=== PATIENT | female | born 1960 | race Caucasian/White ===

== ENCOUNTER 2017-03-02 18:01 | Inpatient (IN) ==
[2017-03-02 18:47] LABS: BASO% 0.3 % (0.0-0.8); EOS# 0.13 X1000 (0.0-0.7); EOS% 0.8 % (0.0-10.0); HEMATOCRIT 35.8 % (37.0-47.0); HEMOGLOBIN 12.4 g/dL (12.0-16.0); IMM GRAN% 1.7 % (0.0-0.5); LYMPH# 0.94 X1000 (1.2-3.4); LYMPH% 5.4 % (20.5-51.1); MANUAL DIFF NEEDED? NO; MCH 26.3 PG (27-31); MCHC 34.6 g/dL (33-37); MONO# 1.94 X1000 (0.11-0.59); MONO% 11.2 % (1.7-9.3); MPV 10.7 FL (7.4-10.4); NEUT% 80.6 % (42.2-75.2); PLT 438 X1000 (130-400); RBC 4.71 XMIL (4.2-5.4)
[2017-03-02 19:11] LABS: URINE SOURCE CLEAN CATCH
[2017-03-02 19:18] LABS: BILIRUBIN URINE NEGATIVE (NEGATIVE); BLOOD URINE SMALL (NEGATIVE); COLOR YELLOW; GLUCOSE URINE NEGATIVE (NEGATIVE); LEUKOCYTES URINE LARGE (NEGATIVE); NITRITE URINE NEGATIVE (NEGATIVE); PROTEIN URINE 100 mg/dL (NEGATIVE); SP GRAVITY URINE 1.008; TURBIDITY URINE HAZY (CLEAR); URINE MICRO REVIEW NEEDED? YES; UROBILINOGEN URINE NORMAL (NORMAL)
[2017-03-02 19:20] LABS: UR EPITHELIAL CELLS <10 /HPF (<10); URINE BACTERIA NEGATIVE /HPF; URINE CULTURE NEEDED? YES; URINE RBC <10 /HPF (<10); URINE WBC TNTC /HPF (<10)
[2017-03-02 19:23] LABS: ALBUMIN 2.8 g/dL (3.5-5.0); CALCIUM 8.9 mg/dL (8.8-10.2); POTASSIUM 3.1 mmol/L (3.5-5.1); TOTAL BILIRUBIN 1.29 mg/dL (0.20-1.00); TOTAL PROTEIN 7.8 g/dL (6.3-8.3)
[2017-03-02] MEDS ORDERED: MORPHINE IV ONE (19:52)
[2017-03-02] MEDS ORDERED: ZOFRAN IV ONE (19:52)
[2017-03-02] MEDS ORDERED: NS 1,000 ML IV ONE (19:52)
--- NOTE | 2017-03-02 20:33 | PROVIDER DOCUMENTATION ---
This chart was entered by Maria C Verde Scribe, acting as scribe for Sheng Colon MD. HPI-General Adult - General Chief Complaint: General Adult Stated Complaint: KIDNEY PAIN Time Seen by Provider: 03/02/17 19:36 Source: patient Allergies/Adverse Reactions: Patient Allergies Allergy/AdvReac Type Severity Reaction Status Date / Time Penicillins Allergy Unknown Verified 03/02/17 20:14 Home Medications: Home Medication List Medication Instructions Recorded Confirmed Last Taken Type NK [No Home Medications] 03/02/17 03/02/17 Unknown History - History of Present Illness -Gen Adult Nature of Presenting Problems: 56 year old F presents to the ED with a cc of syncope. Pt states that 4 days ago she lost her appetite. PT states that 2 days ago she began developing nausea , vomiting, diarrhea, lower back pain, and painful urination. Pt states that she has been taking AZO and has since had relief of nausea, vomiting, diarrhea, and painful urination. Pt states today she was very weak and had a few episodes of syncope. Location of Pain/Injury: reports: back Pain Radiation: reports: no radiation Quality of Pain: reports: aching Severity: reports: mild Onset/Duration: reports: 4 days ago Timing: reports: improving Context/Activities at Onset: reports: none Associated Symptoms: reports: diarrhea, genitourinary problems, loss of appetite , nausea, syncope, vomiting, weakness Similar Symptoms Previously?: No Recently seen or treated by another doctor?: No Review of Systems - Adult - REVIEW OF SYSTEMS - ADULT Constitutional: reports: chills, fever Eyes: reports: no symptoms reported Ears, Nose, Mouth & Throat: reports: no symptoms reported Cardiovascular: reports: no symptoms reported Respiratory: denies: cough, shortness of breath Gastrointestinal: reports: diarrhea, nausea, vomiting Genitourinary: reports: dysuria. denies: hematuria Musculoskeletal: reports: back pain. denies: muscle weakness Integumentary: reports: no symptoms reported Neurological: reports: no symptoms reported Psychiatric: reports: no symptoms reported Endocrine: reports: no symptoms reported Hematologic/Lymphatic: reports: no symptoms reported Allergic/Immunologic: reports: no symptoms reported All Other Systems: Reviewed and Negative Past History - Adult - PAST MEDICAL HISTORY-ADULT Review of Records: reports: Nursing Assessment Review, Medications Reviewed Major Childhood Illnesses: reports: denies history - PRIOR SURGERIES/PROCEDURES Surgical/Procedure History: reports: none - IMMUNIZATION STATUS Childhood Immunizations: See Nurse Assessment Flu Vaccine: See Nurse Assessment - SOCIAL HISTORY Smoking: quit greater than 1 year Substance Use: none/never Alcohol Use Frequency: never Physical Exam-General - PHYSICAL EXAM-ADULT Initial Vital Signs Reviewed: Yes - CONSTITUTIONAL General Appearance: appears well, alert, no apparent distress - RESPIRATORY Respiratory: chest non-tender, lungs clear, normal breath sounds - CARDIOVASCULAR Cardiovascular: normal peripheral pulses, regular rate, rhythm, no edema - GASTROINTESTINAL (ABDOMEN) Abdominal Exam: normal bowel sounds, non tender, soft - MUSCULOSKELETAL Back Exam: CVA tenderness (severely tender bilateral CVA) - SKIN Integumentary: normal color, normal turgor, warm/dry - PSYCHIATRIC Psych/Mental Status: normal mood/affect, normal thought content, normal thought process, oriented x 3 Progress - PLAN OF CARE/RESULTS Progress/Plan/Lab Results: Vital Signs - 8 hr 03/02/17 18:09 Temperature 99.2 F Pulse Rate 77 Respiratory Rate 18 Blood Pressure 122/55 O2 Sat by Pulse Oximetry 97 Laboratory Results - last 24 hr 03/02/17 03/02/17 03/02/17 18:30 18:30 19:00 WBC 17.30 H RBC 4.71 Hgb 12.4 Hct 35.8 L MCV 76.0 L MCH 26.3 L MCHC 34.6 RDW Std Deviation 15.5 H Plt Count 438 H MPV 10.7 H Immature Gran % (Auto) 1.7 H Neut % (Auto) 80.6 H Lymph % (Auto) 5.4 L [place] % (Auto) 11.2 H Eos % (Auto) 0.8 Baso % (Auto) 0.3 Immature Gran # (Auto) 0.30 H Neut # (Auto) 13.94 H Lymph # (Auto) 0.94 L [place] # (Auto) 1.94 H Eos # (Auto) 0.13 Baso # (Auto) 0.05 Sodium 131 L Potassium 3.1 L Chloride 92 L Carbon Dioxide 16 L Anion Gap 23 BUN 58 H Creatinine 2.3 H Estimated GFR/1.73 m2 22 BUN/Creatinine Ratio 25 Glucose 123 H Calculated Osmolality 280 Calcium 8.9 Total Bilirubin 1.29 H AST 158 H ALT 129 H Alkaline Phosphatase 175 H Total Protein 7.8 Albumin 2.8 L Globulin 5.0 Albumin/Globulin Ratio 0.6 Urine Source CLEAN CATCH Urine Color YELLOW Urine Turbidity HAZY Urine pH 6.0 Ur Specific [place] 1.008 Urine Protein 100 A Ur Glucose (Stick) NEGATIVE Ur Ketones (Stick) NEGATIVE Urine Blood SMALL A Urine Nitrite NEGATIVE Urine Bilirubin NEGATIVE Urobilinogen Dipstick NORMAL Urine Leukocytes LARGE A Urine WBC (Auto) TNTC A Urine RBC (Auto) <10 U Epithel Cells (Auto) <10 Urine Bacteria (Auto) NEGATIVE Urine Crystals Not Reportable Small Round Cells Not Reportable Urine Casts Not Reportable Urine Yeast-like Cells NONE SEEN Orders Category Date Time Status BLOOD CULTURE [BLDCUL] Stat Lab 03/02/17 19:51 Uncollected CBC WITH ELECTRONIC DIFF [HEME] Stat Lab 03/02/17 18:30 Completed COMPREHENSIVE METABOLIC PANEL [CHEM] Stat Lab 03/02/17 18:30 Completed UA Reflex [URINALYSIS W/POSS RFLX CULT-1] [URINALYSIS] Lab 03/02/17 19:00 Completed Stat URINE CULTURE [RM] Routine Lab 03/02/17 19:30 Received URINE MANUAL MICROSCOPIC [URINALYSIS] Stat Lab 03/02/17 19:00 Completed Result Diagrams: 03/02/17 18:30 03/02/17 18:30 - CONSULTS/PCP/HOSPITALIST Notification #1 *Consult/PCP/Hospitalist*: Dr. Rose(Hospitalist) Time Discussed: 20:30 Consult Disposition: Admit Departure - Departure Time of Disposition Decision: 20:31 DIAGNOSIS: Pyelonephritis, TIKA (acute kidney injury) Disposition: ADMITTED INPATIENT 09 Certified Medical Emergency: Emergent Condition: Fair Referrals and Follow-Ups: None,PCP [Primary Care Provider] - - Critical Care Note This patient required my direct & personal management of CC.: No This chart was documented by the indicated scribe, (Maria C Verde Scribe) and accurately reflects the services I performed and decisions made by me, Sheng Colon MD, as attested by the provider's signature.
[2017-03-02] MEDS ORDERED: ZOFRAN IV PRN (22:45)
[2017-03-02] MEDS ORDERED: KLOR-CON PO ONE (22:45)
[2017-03-02] MEDS: NS 1,000 ML IV SCH (23:14)
[2017-03-02] MEDS: LEVAQUIN 500 MG/D5W 500 MG/100 ML IVPB IV SCH (23:14)
[2017-03-03] MEDS: NS 1,000 ML IV SCH ×3 (06:29→20:49)
[2017-03-03 07:16] LABS: BASO% 0.1 % (0.0-0.8); EOS# 0.06 X1000 (0.0-0.7); EOS% 0.4 % (0.0-10.0); HEMATOCRIT 29.2 % (37.0-47.0); HEMOGLOBIN 10.1 g/dL (12.0-16.0); IMM GRAN# 0.14 X1000 (0.0-0.04); LYMPH# 0.99 X1000 (1.2-3.4); LYMPH% 7.3 % (20.5-51.1); MANUAL DIFF NEEDED? YES; MCH 26.4 PG (27-31); MCHC 34.6 g/dL (33-37); MCV 76.4 FL (81-99); MONO# 1.44 X1000 (0.11-0.59); MONO% 10.7 % (1.7-9.3); MPV 10.1 FL (7.4-10.4); NEUT% 80.5 % (42.2-75.2); PLT 436 X1000 (130-400); RBC 3.82 XMIL (4.2-5.4)
[2017-03-03 07:38] LABS: LYMPHS 9 % (21-51); MONO 4 % (1-9)
[2017-03-03 07:45] LABS: CALCIUM 8.1 mg/dL (8.8-10.2); POTASSIUM 2.7 mmol/L (3.5-5.1)
--- NOTE | 2017-03-03 07:48 | Diag Imaging Result Doc PS360 ---
EXAM: ABDOMEN/PELVIS W/O CONTRAST HISTORY: severe pyelo TECHNIQUE: CT urogram without contrast COMMENT: The spleen is enlarged measuring over 16 cm in AP dimension. There is mild left-sided hydronephrosis with perinephric stranding. There is cortical scarring throughout the right kidney. There are no apparent stones. The urinary bladder is unremarkable in appearance. There is no evidence of appendicitis or bowel obstruction. The gallbladder is not distended and there are no apparent gallstones. There is degenerative disc disease throughout the lumbar spine. IMPRESSION: Splenomegaly. No evidence of urolithiasis. The possibility of a recently passed stone or other ureteral obstruction on the left cannot be excluded. The possibility of left-sided pyelonephritis cannot be excluded. Cortical changes in the right kidney suggesting previous pyelonephritis. Electronically signed by Rudi Vick 03/03/2017 7:46 AM
--- NOTE | 2017-03-03 08:22 | HISTORY AND PHYSICAL ---
CHIEF COMPLAINT: Left flank pain, nausea, vomiting times 2-3 days. HISTORY OF PRESENTING ILLNESS: This is a 55-year-old female who states that she does not have any significant past medical history and presented to the emergency department with 3 days history of having left flank pain. She states that she was having some nausea and vomiting, and the pain seemed to be worsening. Subsequently she had come to the emergency department. In the ER she was evaluated. She had imaging done which did show stranding in the left kidney consistent with pyelonephritis and due to her presenting symptoms it was thought that she would need hospitalization and further management. At the time of my examination she had denied any headaches, chest pain, shortness of breath, hemoptysis, melena, weight changes, but complained of nausea, vomiting and having some fevers and chills. PAST MEDICAL HISTORY: None. PAST SURGICAL HISTORY: None. ALLERGIES: Penicillin. CURRENT MEDICATIONS: None. SOCIAL HISTORY: She denies any history of smoking, alcohol or illicit drug use. FAMILY HISTORY: Positive for coronary disease in mother. REVIEW OF SYSTEMS: Twelve point review of systems is as in HPI. Other systems negative. PHYSICAL EXAMINATION: GENERAL: Cooperative, friendly female. She is resting more comfortably now. VITAL SIGNS: Temp is 99.2, pulse 77, respiration 18, blood pressure 122/55, she is saturating 97%. HEENT: Atraumatic, normocephalic. Extraocular movements intact. PERRLA. NECK: Supple. CHEST: Clear to auscultation. CARDIOVASCULAR: Regular rate and rhythm. ABDOMEN: Soft, left flank tenderness. EXTREMITIES: Trace edema. NEUROLOGIC: She is awake, alert, oriented x3. GENITOURINARY: No bladder distention. SKIN: Warm. LABORATORIES AND STUDIES: Sodium 131, potassium 3.1, chloride 92, CO2 16, BUN is 58, creatinine is 2.3, glucose is 123, AST 158, ALT 129, alkaline phosphatase 175. ASSESSMENT: A 56-year-old female who presented to our emergency department with a 3 day history of having abdominal pain mostly in the left flank region, nausea and vomiting. She was evaluated in the ER and was found to have stranding on imaging consistent with pyelonephritis. She will need hospitalization for further management. 1. Acute left pyelonephritis. 2. Abnormal liver function tests. 3. Mild hypokalemia. 4. Acute kidney injury. PLAN: 1. We will admit patient to medical floor with telemetry. 2. We will start patient on IV antibiotics, give her adequate pain control and antiemetics. 3. Continue with IV fluids. 4. We will check abdominal ultrasound of the right upper quadrant and also check a hepatitis profile. 5. We will replace her potassium. 6. Monitor renal function. 7. We will put patient on DVT prophylaxis with SCDs. 8. We will continue to follow and reassess. cc: Neto Rose MD
--- NOTE | 2017-03-03 08:42 | Diag Imaging Result Doc PS360 ---
EXAM: US ABDOMEN-COMPLETE HISTORY: abdominal pain TECHNIQUE: COMPARISON: CT from 03/02/2017 FINDINGS: Normal proximal aorta. The distal aorta is obscured. Normal inferior vena cava. Normal pancreatic head and body.. The pancreatic tail is obscured. No focal hepatic abnormality. There is scarring to the right kidney. No hydronephrosis. The gallbladder is partly contracted. The common bile duct measures 3 mm. Spleen is mildly enlarged measuring 14.3 cm in length. No ascites. Normal left kidney. No hydronephrosis. IMPRESSION: 1.Mild splenomegaly 2.Scarring to the right kidney 3.Partially contracted gallbladder Electronically signed by Jayson Emanuel 03/03/2017 8:39 AM
[2017-03-03] MEDS: MERREM 500 MG in NS 50 ML IV SCH ×2 (09:31→16:14)
[2017-03-03 10:08] LABS: ALBUMIN 2.8 g/dL (3.5-5.0); DIRECT BILIRUBIN 0.8 mg/dL (0.00-0.20); TOTAL BILIRUBIN 1.24 mg/dL (0.20-1.00); TOTAL PROTEIN 5.9 g/dL (6.3-8.3)
[2017-03-03] MEDS: POTASSIUM CHLORIDE 20 MEQ/SWI 20 MEQ/100 ML IVPB IV SCH ×2 (10:09→12:24)
--- NOTE | 2017-03-03 13:48 | PROGRESS NOTE ---
DATE: 03/03/2017 SUBJECTIVE: The patient is resting comfortably in bed. She states that she feels a lot better today. She denies any nausea, vomiting or abdominal pain. OBJECTIVE: Vital Signs: Temperature 98 degrees, blood pressure 124/57, heart rate 69, respirations 17, O2 saturations 95% on room air. General: This is an elderly, morbidly obese female, lying in bed in no acute distress. Head: Normocephalic, atraumatic. Heart: S1, S2. Normal. Regular rate and rhythm. Lungs: Clear to auscultation bilaterally. No crackles. No rales. Abdomen: Positive bowel sounds. Soft, nontender, nondistended. Extremities: No edema. No cyanosis. No calf tenderness. Neurologic: The patient is alert and oriented x3. LABS: White blood cell count 13, hemoglobin 10,hematocrit 29, platelets 436. Sodium 135, potassium 2.7, chloride 98, CO2 21, BUN 51, creatinine 1.9, glucose 102. Total bilirubin 1.24, AST 113, ALT 110, alkaline phosphatase 145, albumin 2.8. ASSESSMENT AND PLAN: 1. Acute left pyelonephritis. The urine culture is growing gram-negative rods. We will continue on intravenous antibiotic therapy and follow up on the culture results. 2. Elevated liver function tests. This appears to slowly be improving. The abdominal ultrasound is unremarkable. We will await the results of the hepatitis profile. 3. Acute kidney injury on chronic kidney disease. Improving. Continue on intravenous fluid hydration. 4. Morbid obesity. Aware. 5. Deep vein thrombosis prophylaxis. Will start the patient on Lovenox. 6. Will consult physical therapy. cc: Argentina Armstrong MD
[2017-03-03] MEDS: NORCO-5 PO PRN ×2 (14:02→20:41)
[2017-03-03] MEDS: LOVENOX SUBQ SCH (14:02)
[2017-03-03] MEDS: DESYREL PO PRN (20:45)
[2017-03-03] MEDS: LEVAQUIN 500 MG/D5W 500 MG/100 ML IVPB IV SCH (21:55)
[2017-03-04] MEDS: MERREM 500 MG in NS 50 ML IV SCH ×3 (00:50→16:39)
[2017-03-04] MEDS: NORCO-5 PO PRN ×3 (00:51→21:33)
[2017-03-04 06:24] LABS: MANUAL DIFF NEEDED? NO
[2017-03-04] MEDS: PRILOSEC PO SCH (06:29)
[2017-03-04 06:37] LABS: BASO% 0.2 % (0.0-0.8); EOS# 0.21 X1000 (0.0-0.7); EOS% 1.6 % (0.0-10.0); HEMATOCRIT 27.9 % (37.0-47.0); HEMOGLOBIN 9.5 g/dL (12.0-16.0); IMM GRAN# 0.23 X1000 (0.0-0.04); IMM GRAN% 1.8 % (0.0-0.5); LYMPH# 1.03 X1000 (1.2-3.4); LYMPH% 7.9 % (20.5-51.1); MCH 26.5 PG (27-31); MCHC 34.1 g/dL (33-37); MCV 77.9 FL (81-99); MONO# 1.17 X1000 (0.11-0.59); MONO% 8.9 % (1.7-9.3); MPV 9.6 FL (7.4-10.4); NEUT% 79.6 % (42.2-75.2); PLT 560 X1000 (130-400); RBC 3.58 XMIL (4.2-5.4)
[2017-03-04 06:49] LABS: ALBUMIN 2.8 g/dL (3.5-5.0); CALCIUM 7.9 mg/dL (8.8-10.2); POTASSIUM 2.9 mmol/L (3.5-5.1); TOTAL BILIRUBIN 0.87 mg/dL (0.20-1.00); TOTAL PROTEIN 6.7 g/dL (6.3-8.3)
[2017-03-04] MEDS ORDERED: KLOR-CON PO ONE (09:09)
[2017-03-04] MEDS: NEUTRA-PHOS PO SCH ×3 (09:39→22:00)
[2017-03-04] MEDS: MIRALAX PO SCH ×2 (09:39→21:36)
[2017-03-04 11:09] LABS: HEPATITIS PROFILE ACUTE SEE COMMENTS
[2017-03-04] MEDS ORDERED: NS 1,000 ML ONE (11:34)
--- NOTE | 2017-03-04 12:33 | PROGRESS NOTE ---
DATE: 03/04/2017 SUBJECTIVE: The patient is sitting up on the edge of the bed. She states that she feels a lot better today. OBJECTIVE: Vital signs: Temperature 97, blood pressure 101/50, heart rate 59, respirations 19, O2 sat is 99% on room air. General: This is an elderly female lying in bed in no acute distress. HEENT: Head normocephalic, atraumatic. Heart: S1, S2 normal. Regular rate and rhythm. Lungs: Clear to auscultation bilaterally with no wheezing, no rales, no rhonchi. Abdomen: Positive bowel sounds, soft, nontender, nondistended. Extremities: No edema, no cyanosis, no calf tenderness. Neurological: The patient is alert and oriented x3. LABS: White blood cell count 13, hemoglobin 9.5, hematocrit 27, platelets 560. Sodium 139, potassium 2.9, chloride 102, CO2 of 20, BUN 39, creatinine 1.5, glucose 109. AST 66, ALT 87, alkaline phosphatase 140. Urine culture: E. coli. ASSESSMENT AND PLAN: 1. Acute left pyelonephritis secondary to E. coli. Continue on the current IV antibiotic region. 2. Elevated liver function tests, improved. 3. Acute kidney injury on chronic kidney disease. Slowly improving. 4. Morbid obesity. Aware. 5. DVT prophylaxis. Continue on Lovenox. 6. Continue with physical therapy. cc: Argentina Armstrong MD
[2017-03-04] MEDS: LOVENOX SUBQ SCH (14:39)
[2017-03-04] MEDS: DESYREL PO PRN (21:33)
[2017-03-04] MEDS: LEVAQUIN 500 MG/D5W 500 MG/100 ML IVPB IV SCH (22:39)
[2017-03-05] MEDS: MERREM 500 MG in NS 50 ML IV SCH ×3 (01:25→16:45)
[2017-03-05] MEDS: NORCO-5 PO PRN ×5 (02:28→22:40)
[2017-03-05] MEDS: PRILOSEC PO SCH (06:42)
[2017-03-05 07:33] LABS: MANUAL DIFF NEEDED? NO
[2017-03-05 07:43] LABS: BASO% 0.3 % (0.0-0.8); EOS# 0.29 X1000 (0.0-0.7); EOS% 2.5 % (0.0-10.0); HEMATOCRIT 29.6 % (37.0-47.0); HEMOGLOBIN 9.9 g/dL (12.0-16.0); IMM GRAN# 0.33 X1000 (0.0-0.04); IMM GRAN% 2.8 % (0.0-0.5); LYMPH# 1.55 X1000 (1.2-3.4); LYMPH% 13.2 % (20.5-51.1); MCH 26.3 PG (27-31); MCHC 33.4 g/dL (33-37); MCV 78.7 FL (81-99); MONO# 0.82 X1000 (0.11-0.59); MPV 9.1 FL (7.4-10.4); NEUT% 74.2 % (42.2-75.2); PLT 667 X1000 (130-400); RBC 3.76 XMIL (4.2-5.4)
[2017-03-05 08:22] LABS: ALBUMIN 2.9 g/dL (3.5-5.0); CALCIUM 8.4 mg/dL (8.8-10.2); POTASSIUM 3.4 mmol/L (3.5-5.1); TOTAL BILIRUBIN 0.77 mg/dL (0.20-1.00); TOTAL PROTEIN 6.2 g/dL (6.3-8.3)
[2017-03-05] MEDS: NEUTRA-PHOS PO SCH (10:04)
[2017-03-05] MEDS: MIRALAX PO SCH ×2 (10:05→22:39)
--- NOTE | 2017-03-05 12:09 | PROGRESS NOTE ---
DATE: 03/05/2017 SUBJECTIVE: The patient is resting comfortably in bed. She states that she is starting to feel a lot better. OBJECTIVE: Vital Signs: Temperature 98.2 degrees, blood pressure 126/63, heart rate 64, respirations 20, O2 saturations 95% on room air. General: This is an elderly female, lying in bed, in no acute distress. HEENT: Head is normocephalic and atraumatic. Heart: S1, S2. Normal. Regular rate and rhythm. Lungs: Clear to auscultation bilaterally. Abdomen: Positive bowel sounds. Soft, nontender, nondistended. Extremities: No edema. No cyanosis. No calf tenderness. LABS: White blood cell count 11, hemoglobin 9.9, hematocrit 29, platelets 667,000. Sodium 137, potassium 3.4, chloride 102, CO2 22, BUN 26, creatinine 1.1. AST 45, ALT 72, alkaline phosphatase 148. ASSESSMENT AND PLAN: 1. Acute pyelonephritis secondary to Escherichia coli. Continue on IV antibiotic therapy. 2. Acute kidney injury. Improved. 3. Morbid obesity. Aware. 4. Elevated liver function tests. Improved. 5. Deep vein thrombosis prophylaxis. Continue on Lovenox. 6. Continue with physical therapy. cc: Argentina Armstrong MD
[2017-03-05] MEDS: LOVENOX SUBQ SCH (16:48)
[2017-03-05] MEDS: LEVAQUIN 500 MG/D5W 500 MG/100 ML IVPB IV SCH (22:39)
[2017-03-05] MEDS: DESYREL PO PRN (22:41)
[2017-03-06] MEDS: MERREM 500 MG in NS 50 ML IV SCH ×3 (01:26→17:11)
[2017-03-06] MEDS: TYLENOL PO PRN (01:35)
[2017-03-06] MEDS: PRILOSEC PO SCH (06:12)
[2017-03-06 06:39] LABS: MANUAL DIFF NEEDED? NO
[2017-03-06 06:50] LABS: BASO% 0.2 % (0.0-0.8); EOS# 0.15 X1000 (0.0-0.7); EOS% 1.5 % (0.0-10.0); HEMATOCRIT 30.1 % (37.0-47.0); HEMOGLOBIN 9.9 g/dL (12.0-16.0); IMM GRAN# 0.32 X1000 (0.0-0.04); IMM GRAN% 3.3 % (0.0-0.5); LYMPH# 1.46 X1000 (1.2-3.4); LYMPH% 14.9 % (20.5-51.1); MCH 26.5 PG (27-31); MCHC 32.9 g/dL (33-37); MCV 80.5 FL (81-99); MONO# 0.65 X1000 (0.11-0.59); MONO% 6.6 % (1.7-9.3); MPV 8.8 FL (7.4-10.4); NEUT% 73.5 % (42.2-75.2); PLT 698 X1000 (130-400); RBC 3.74 XMIL (4.2-5.4)
[2017-03-06 07:24] LABS: AGAP 14; ALBUMIN 2.9 g/dL (3.5-5.0); ALKALINE PHOSPHATASE 128 U/L (32-104); BUN 18 mg/dL (8-22); CALCIUM 8.5 mg/dL (8.8-10.2); CHLORIDE 103 mmol/L (98-107); COSMO 281; GOT 38 U/L (10-30); GPT 62 U/L (10-36); POTASSIUM 3.8 mmol/L (3.5-5.1); SODIUM 140 mmol/L (136-145); TCO2 23 mmol/L (25-35); TOTAL BILIRUBIN 0.62 mg/dL (0.20-1.00); TOTAL PROTEIN 6.3 g/dL (6.3-8.3)
[2017-03-06] MEDS: NORCO-5 PO PRN ×2 (09:21→16:42)
[2017-03-06] MEDS: MIRALAX PO SCH ×2 (09:21→22:31)
--- NOTE | 2017-03-06 13:07 | PROGRESS NOTE ---
DATE: 03/06/2017 SUBJECTIVE: The patient is resting comfortably. She states that she feels a lot better today. No acute events noted overnight. OBJECTIVE: Vital signs: Temperature is 97.9, blood pressure 129/65, heart rate 66, respirations 21, and O2 saturation 98% on room air. General: This is an elderly, morbidly obese, female lying in bed in no acute distress. HEENT: The head is normocephalic, atraumatic. Heart: S1 and S2 are normal. Regular rate and rhythm. Lungs: Clear to auscultation bilaterally. Abdomen: Positive bowel sounds. Soft, nontender, and nondistended. Extremities: No edema. No cyanosis. No calf tenderness. Neurological: The patient is alert and oriented times 3. LABORATORY DATA: White blood cell count is 9.8, hemoglobin 9.9, hematocrit 30, and platelets 698. Sodium is 140, potassium 3.8, chloride 103, CO2 23, BUN 18, creatinine 0.9, glucose 101, AST 38, ALT 62, and ALK PHOS 128. ASSESSMENT AND PLAN: 1. Acute pyelonephritis secondary to E. coli, improved. Continue on IV antibiotic therapy. 2. Acute kidney injury, resolved. 3. Morbid obesity. Aware. 4. Elevated liver function tests, slowing improving. 5. Deep venous thrombosis prophylaxis. Continue on Lovenox. 6. Continue with Physical Therapy. DISPOSITION: The patient will likely be discharged home on Wednesday. cc: Argentina Armstrong MD MTDD
[2017-03-06] MEDS: LOVENOX SUBQ SCH (17:11)
[2017-03-06] MEDS: DESYREL PO PRN (22:30)
[2017-03-06] MEDS: LEVAQUIN 500 MG/D5W 500 MG/100 ML IVPB IV SCH (22:31)
[2017-03-07] MEDS: MERREM 500 MG in NS 50 ML IV SCH ×3 (01:05→17:17)
[2017-03-07] MEDS: PRILOSEC PO SCH (06:10)
[2017-03-07] MEDS: TYLENOL PO PRN ×2 (06:10→21:12)
[2017-03-07 06:49] LABS: MANUAL DIFF NEEDED? NO
[2017-03-07 06:52] LABS: BASO% 0.2 % (0.0-0.8); EOS# 0.12 X1000 (0.0-0.7); EOS% 1.3 % (0.0-10.0); HEMATOCRIT 30.3 % (37.0-47.0); HEMOGLOBIN 9.9 g/dL (12.0-16.0); IMM GRAN# 0.38 X1000 (0.0-0.04); LYMPH# 1.53 X1000 (1.2-3.4); MCH 26.4 PG (27-31); MCHC 32.7 g/dL (33-37); MCV 80.8 FL (81-99); MONO# 0.76 X1000 (0.11-0.59); MONO% 7.9 % (1.7-9.3); MPV 8.6 FL (7.4-10.4); NEUT% 70.6 % (42.2-75.2); PLT 718 X1000 (130-400); RBC 3.75 XMIL (4.2-5.4)
[2017-03-07] MEDS: MIRALAX PO SCH ×2 (08:31→21:11)
--- NOTE | 2017-03-07 15:52 | PROGRESS NOTE ---
DATE: 03/07/2017 SUBJECTIVE: The patient is resting comfortably in bed. She states that she feels a lot better today. OBJECTIVE: Vital Signs: Temperature 98.5 degrees, blood pressure 127/55, heart rate 74, respirations 20, O2 saturations 97% on room air. General: This is an elderly female lying in bed, in no acute distress. Head: Normocephalic, atraumatic. Heart: S1, S2. Normal. Regular rate and rhythm. Lungs: Clear to auscultation bilaterally. No wheezes, no rales. No rhonchi. Abdomen: Positive bowel sounds. Soft, nontender, nondistended. Extremities: No edema. No cyanosis. No calf tenderness. Neurologic: The patient is alert and oriented x3. LABORATORY: White blood cell count 9.5, hemoglobin 9.9, hematocrit 30, platelets 718,000. ASSESSMENT AND PLAN: 1. Acute left-sided pyelonephritis secondary to Escherichia coli. Improved. The patient will need to complete 8 more days of antibiotic therapy. The patient will be discharged home tomorrow on Levaquin. 2. Acute kidney injury. Resolved. 3. Morbid obesity. Aware. 4. Elevated liver function tests. Stable. 5. Deep vein thrombosis prophylaxis. Continue on Lovenox. 6. Disposition. The patient will be discharged home tomorrow. cc: Argentina Armstrong MD
[2017-03-07] MEDS: LOVENOX SUBQ SCH (17:17)
[2017-03-07] MEDS: DESYREL PO PRN (21:12)
[2017-03-07] MEDS: LEVAQUIN 500 MG/D5W 500 MG/100 ML IVPB IV SCH (22:24)
[2017-03-08] MEDS: MERREM 500 MG in NS 50 ML IV SCH ×2 (00:19→09:49)
[2017-03-08 07:43] VITALS: BP 168/76
[2017-03-08] MEDS: MIRALAX PO SCH (09:50)
[2017-03-08] MEDS: PRILOSEC PO SCH (09:51)
--- NOTE | 2017-03-08 21:37 | DISCHARGE SUMMARY ---
ADMISSION DATE: 03/02/2017 DISCHARGE DATE: 03/08/2017 CONSULTATIONS: None. PERTINENT PROCEDURES: 1. Abdomen/pelvis CT showed splenomegaly. No evidence of obstruction with possibility of recently passed stone or other urethral obstruction on the left cannot be excluded. The possibility of left- sided pyelonephritis cannot be excluded. Clinical changes in the right kidney suggestive of previous pyelonephritis. 2. Abdominal ultrasound showed mild splenomegaly, scarring of the right kidney, partially contracted gallbladder. DISCHARGE DIAGNOSES: 1. Acute left-sided pyelonephritis secondary to E-coli 2. Acute kidney injury 3. Morbid obesity. 4. Elevated liver function tests. HOSPITAL COURSE: Ms. Ramos is a 55-year-old female with no significant past medical history who presented to the ED with 3 days of having left flank pain. She was also having some nausea and vomiting, and the pain seemed to be worsening so she came to be evaluated in the ED. Imaging done did show stranding in the left kidney consistent with pyelonephritis for which the patient was admitted as well as an acute kidney injury. She was started on IV antibiotics, adequate pain control, antiemetics as well as IV fluids. She also had some elevated LFTs and they did an abdominal ultrasound that did show splenomegaly, scarring of the right kidney and a partially contracted gallbladder. The patient's acute kidney injury resolved. Her white count has improved. She has remained afebrile. Her enzymes have trended down. Her urine culture did grow out E-coli for which she was continued on IV Levaquin. She will be switched to p.o. Levaquin for a total of 8 days. DISCHARGE VITAL SIGNS: Temperature 98.1 degrees, heart rate 76, respirations 17 , blood pressure 125/57, O2 is 98% on room air. DISCHARGE DIET: Healthy heart. DISCHARGE MEDICATIONS: As per Dr. Armstrong, Levaquin 750 mg p.o. daily for 8 days. FOLLOWUP: The patient is being discharged home where she will need to complete a full course of her p.o. antibiotics. Patient can return to the ED for any worsening of symptoms. DISCHARGE TIME: 30 minutes. Dictated by YANNI Chatterjee for Argentina Armstrong MD cc: Argentina Armstrong MD [facility]
== END 2017-03-08 11:00 | disposition home or self-care (01) ==
LOC: ED 18:01 → SUATTDRO 21:58 → 3N 21:58
PROVIDERS: ATTEND Internal Medicine